=== PATIENT | male | born 1995 | race Caucasian/White ===

== ENCOUNTER → 2016-11-15 | Outpatient (CLI) | payer OTHER | LOC: RAD 12:22 | PROVIDERS: ATTEND Surgery | DX: R10.9 Unspecified abdominal pain (principal); R11.2 Nausea with vomiting, unspecified | CPT/HCPCS: 78227; A9537; Q9969; J2805 ==

== ENCOUNTER 2018-12-19 04:13 | Observation (INO) | payer BC, OTHER ==
[2018-12-19] MEDS ORDERED: ONDANSETRON HCL INJ/PF 4 MG/2 ML SDV IV ONE ×2 (04:35→13:53)
[2018-12-19] MEDS ORDERED: MORPHINE SULFATE 10 MG/ML INJ IV ONE (04:36)
[2018-12-19] MEDS ORDERED: FAMOTIDINE INJ/PF 20 MG/2 ML SDV IV ONE (04:36)
[2018-12-19] MEDS ORDERED: HYDROMORPHONE HCL INJ/PF 2 MG/ML AMPULE IV ONE ×3 (04:54→08:58)
--- NOTE | 2018-12-19 04:54 | ER Document Report ---
ED GI/ - General Chief Complaint: Abdominal Pain Stated Complaint: ABD PAIN Time Seen by Provider: 12/19/18 04:28 TRAVEL OUTSIDE OF THE [place] IN LAST 30 DAYS: No - HPI Notes: 12/19/18 04:35 Patient presents to the emergency department with chief complaint of abdominal pain that started around 1 AM this morning. Patient states having "gallbladder issues" in the past and states that the gallbladder attacks have never been this bad. Patient has vomited multiple times since developing pain. He reports that the pain feels like a burning throughout his whole abdomen worse in the epigastric and right upper quadrant. Patient states the last time he ate anything was 6 PM last night. 12/19/18 04:55 - Related Data Allergies/Adverse Reactions: No Known Allergies Allergy (Unverified 08/24/15 06:42) Past Medical History - Social History Smoking Status: Unknown if Ever Smoked Family History: Reviewed & Not Pertinent - Immunizations Hx Diphtheria, Pertussis, Tetanus Vaccination: Yes Review of Systems - Review of Systems Constitutional: See HPI EENT: No symptoms reported Cardiovascular: No symptoms reported Respiratory: No symptoms reported Gastrointestinal: See HPI Genitourinary: No symptoms reported Male Genitourinary: No symptoms reported Musculoskeletal: No symptoms reported Skin: No symptoms reported Hematologic/Lymphatic: No symptoms reported Neurological/Psychological: No symptoms reported Physical Exam - Vital signs Vitals: Temp Pulse Resp BP Pulse Ox 97.9 F 93 16 147/98 H 98 12/19/18 04:20 12/19/18 04:20 12/19/18 04:20 12/19/18 04:20 12/19/18 04:20 Interpretation: Hypertensive - Notes Notes: GENERAL: Ill-appearing, obvious distress. Patient writhing in pain. Unable to find position of comfort. HEAD: Atraumatic, normocephalic. EYES: Pupils equal round and reactive to light, extraocular movements intact, sclera anicteric, conjunctiva are normal. ENT: TMs normal, nares patent, oropharynx clear without exudates. Moist mucous membranes. NECK: Normal range of motion, supple without lymphadenopathy or JVD. LUNGS: Breath sounds clear to auscultation bilaterally and equal. No wheezes rales or rhonchi. HEART: Regular rate and rhythm without murmurs, rubs or gallops. ABDOMEN: Soft, tender in the LUQ, epigastrum, RUQ and RLQ, normoactive bowel sounds. + guarding, no rebound. No masses appreciated. EXTREMITIES: Normal range of motion, no pitting or edema. No clubbing or cyanosis. NEUROLOGICAL: Cranial nerves II through XII grossly intact. Normal speech, normal gait. SKIN: Warm, Dry, normal turgor, no rashes or lesions noted. Course - Re-evaluation Re-evalutation: 12/19/18 04:35 Upon initial assessment patient on stretcher writhing in pain. Unable to find a position of comfort and unable to sit still. A brief abdominal assessment was performed to find tenderness in the left upper quadrant, epigastric area, right upper quadrant and right lower quadrant. Will order pain medication. Once patient more comfortable will perform a thorough abdominal assessment. 12/19/18 05:00 Patient received a dose of morphine but patient reports that the medication is not helping. IV Dilaudid ordered at this time. Will continue to closely monitor. 12/19/18 05:24 Patient reports that the Dilaudid only helped him for 10 minutes, patient continues to arrive in pain and yell. We will give another dose of Dilaudid and obtain ultrasound. 12/19/18 0635 Results of ultrasound pending at this time. Went to reevaluate patient, patient resting comfortably on stretcher. Talon Roach PA-C in room for physical assessment as well. Abdomen soft, active bowel sounds in all 4 quadrants, patient is tender in the right lower quadrant as well as the right upper quadrant and epigastric area. Patient states that the majority of his pain is in the epigastric area and feels like a burning. Patient complains of itching primarily around his nose. No hives or rash noted, will administer a small dose of Benadryl. 12/19/18 07:03 Patient's ultrasound showed gallbladder sludge, there is no pericholecystic fluid and no acute findings. Due to patient's continued pain and abdominal exam which revealed significant discomfort in the RLQ and RUQ, I believe further work-up is needed and a CT has been ordered. 12/19/18 07:[address] Bear regarding patient's CT results. Radiologist saw a gallstone in the gallbladder neck, cholelithiasis/bladder sludge, a mildly tensile gallbladder. Pt. does have a white count of 16.1 as well as intractable pain requiring multiple doses of pain medication. Dr. Bear to admit and evaluate patient in the emergency department. Discussed results of CT and surgery with patient patient to remain n.p.o. Patient reports that at this time his pain level is a 2.5 out of 5. Will initiate IV maintenance fluids as well as a dose of IV Zosyn 4.5 g. 12/19/18 08:00 - Vital Signs Vital signs: Temp Pulse Resp BP Pulse Ox 97.9 F 93 26 H 147/98 H 95 12/19/18 04:20 12/19/18 04:20 12/19/18 05:19 12/19/18 04:20 12/19/18 05:19 - Laboratory Result Diagrams: 12/19/18 04:33 12/19/18 04:33 Laboratory results interpreted by me: 12/19/18 12/19/18 12/19/18 04:33 04:33 06:57 WBC 16.1 H Absolute Neutrophils 11.5 H Glucose 125 H Calcium 10.4 H Urine Protein 30 H Urine Ketones TRACE H Urine Bilirubin SMALL H Urine Urobilinogen 2.0 H Discharge - Discharge Clinical Impression: Cholelithiasis Qualifiers: Cholelithiasis location: gallbladder Cholecystitis presence: with cholecystitis Cholecystitis acuity: acute Biliary obstruction: without biliary obstruction Qualified Code(s): K80.00 - Calculus of gallbladder with acute cholecystitis wit hout obstruction Vomiting Qualifiers: Vomiting type: unspecified Vomiting Intractability: non-intractable Nausea presence: with nausea Qualified Code(s): R11.2 - Nausea with vomiting, unspecified Abdominal pain Qualifiers: Abdominal location: right upper quadrant Qualified Code(s): R10.11 - Right upper quadrant pain Condition: Stable Disposition: ADMITTED OBSERVATION Admitting Provider: Dr. Bear Unit Admitted: Surgical Floor
[2018-12-19 04:57] LABS: ABSOLUTE BASOPHILS # (AUTO) 0.1 10^3/uL (0.0-0.2); ABSOLUTE EOSINOPHILS # (AUTO) 0.4 10^3/uL (0.0-0.6); ABSOLUTE LYMPHOCYTES (AUTO) 3.3 10^3/uL (0.5-4.7); ABSOLUTE MONOCYTES (AUTO) 0.8 10^3/uL (0.1-1.4); ABSOLUTE NEUT (AUTO) 11.5 10^3/uL (1.7-8.2); BASOPHILS % (AUTO) 0.4 % (0-2); EOSINOPHILS % (AUTO) 2.3 % (0-6); HEMATOCRIT 46.1 % (37.9-51.0); HEMOGLOBIN 15.9 g/dL (13.5-17.0); LYMPHOCYTES % (AUTO) 20.8 % (13-45); MEAN CORPUSCULAR HEMOGLOBIN 29.1 pg (27.0-33.4); MEAN CORPUSCULAR HGB CONC 34.4 g/dL (32.0-36.0); MEAN CORPUSCULAR VOLUME 85 fl (80-97); MONOCYTES % (AUTO) 5.1 % (3-13); PLATELET COUNT 255 10^3/uL (150-450); RED BLOOD COUNT 5.45 10^6/uL (4.35-5.55); RED CELL DISTRIBUTION WIDTH 13.4 % (11.5-14.0); SEGMENTED NEUTROPHILS % (AUTO) 71.4 % (42-78); TOTAL CELLS COUNTED % (AUTO) 100 %; WHITE BLOOD COUNT 16.1 10^3/uL (4.0-10.5)
[2018-12-19 05:15] LABS: ALANINE AMINOTRANSFERASE 68 U/L (21-72); ALBUMIN 4.7 g/dL (3.5-5.0); ALKALINE PHOSPHATASE 64 U/L (38-126); ANION GAP 12 (5-19); ASPARTATE AMINO TRANSFERASE 26 U/L (17-59); BILIRUBIN,DIRECT 0.3 mg/dL (0.0-0.4); BILIRUBIN,TOTAL 0.5 mg/dL (0.2-1.3); BLOOD UREA NITROGEN 13 mg/dL (7-20); CALCIUM 10.4 mg/dL (8.4-10.2); CARBON DIOXIDE 26 mmol/L (22-30); CHLORIDE 104 mmol/L (98-107); GLUCOSE 125 mg/dL (75-110); LIPASE 65.2 U/L (23-300); SODIUM 142.4 mmol/L (137-145); TOTAL PROTEIN 7.3 g/dL (6.3-8.2)
[2018-12-19] MEDS ORDERED: DIPHENHYDRAMINE HCL 50 MG/ML VIAL IV ONE (06:50)
[2018-12-19] MEDS ORDERED: NORMAL SALINE 1000 ML 1,000 ML IV ONE ×2 (06:56→07:51)
--- NOTE | 2018-12-19 06:58 | RADIOLOGY REPORT (SQ) ---
EXAM DESCRIPTION: US ABDOMEN LIMITED COMPLETED DATE/TME: 12/19/2018 04:45 CLINICAL HISTORY: 23 years Male, EPIGASTRIC/RUQ PAIN Comparison: August 13, 2016. Nuclear medicine, November 15, 2016. LIMITATIONS: None. FINDINGS: Gallbladder sludge, 4 mm gallbladder wall thickness, negative sonographic Grimes's test, no pericholecystic fluid, mild hepatic steatosis, a 0.3-cm diameter common bile duct, no intrahepatic ductal dilation, 11-cm right kidney, obscured pancreas, visualized vasculature/abdominal aorta, and no significant ascites appear otherwise unremarkable. IMPRESSION: 1. No acute findings. 2. Gallbladder sludge. 4 mm gallbladder wall thickness, nonspecific. 3. Hepatic steatosis. 4. Obscured pancreas.
[2018-12-19 07:10] LABS: APPEARANCE,URINE SLIGHTLY-CLOUDY; BILIRUBIN,URINE SMALL (NEGATIVE); CALCIUM OXALATE CRYSTALS,URINE FEW /HPF; COLOR,URINE DARK YELLOW; GLUCOSE, URINE NEGATIVE (NEGATIVE); KETONES,URINE TRACE mg/dL (NEGATIVE); LEUKOCYTE ESTERASE,URINE NEGATIVE (NEGATIVE); NITRITE,URINE NEGATIVE (NEGATIVE); PROTEIN,URINE 30 mg/dL (NEGATIVE); URINE SPECIFIC GRAVITY 1.033
--- NOTE | 2018-12-19 07:39 | RADIOLOGY REPORT (SQ) ---
EXAM DESCRIPTION: CT ABDOMEN PELVIS WITH IV CONTRAST COMPLETED DATE/TME: 12/19/2018 07:02 CLINICAL HISTORY: 23 years Male, RLQ/RUQ QUAD PAIN Comparison: Ultrasound, concurrent. Technique: IV contrast. Coronal and sagittal reformat. This exam was performed according to our departmental dose-optimization program, which includes automated exposure control, adjustment of the mA and/or kV according to patient size and/or use of iterative reconstruction technique. [facility]: Dose Right [facility]: CareDose [facility]: Dose Right [facility]: Teradose 4D [facility]: BitAccess LIMITATIONS: None Findings: Cholelithiasis/gallbladder sludge. Mildly tensile gallbladder. Gallstone at the gallbladder neck. Grade one L5 anterolisthesis, mild posterior L5 vertebral height loss, indeterminate age. Chronic bilateral L5 spondylolyses. No ascites. Inferior thorax, liver, pancreas, spleen, adrenals, renal system, gastrointestinal tract, pelvic organs, lymphatics, vasculature, and musculoskeleton appear otherwise unremarkable. IMPRESSION: 1. Cholelithiasis/gallbladder sludge. Gallstone at the gallbladder neck which increases risk for biliary colic. Mildly tensile gallbladder. Differential diagnosis includes cholecystitis. 2. Grade one L5 anterolisthesis, mild posterior L5 vertebral height loss, indeterminate age. Chronic bilateral L5 spondylolyses.
[2018-12-19] MEDS ORDERED: PIPERACILLIN/TAZOBACTAM 4.5 GM VIAL IV ONE ×2 (07:52→21:11)
[2018-12-19] MEDS ORDERED: ONDANSETRON HCL INJ/PF 4 MG/2 ML SDV ONE (10:18)
[2018-12-19] MEDS ORDERED: METOCLOPRAMIDE HCL INJ/PF 10 MG/2 ML SDV ONE (10:18)
[2018-12-19] MEDS ORDERED: ROCURONIUM BROMIDE INJ 50 MG/5 ML VIAL IV ONE (10:18)
[2018-12-19] MEDS ORDERED: SUCCINYLCHOLINE CHLORIDE INJ 200 MG/10 ML VIAL ONE (10:18)
[2018-12-19] MEDS ORDERED: LIDOCAINE 2% INJ-PF (20 MG/ML) 2 ML AMPUL ONE (10:18)
[2018-12-19] MEDS ORDERED: HYDROMORPHONE HCL INJ/PF 2 MG/ML AMPULE IV PRN (11:26)
[2018-12-19] MEDS ORDERED: ACETAMINOPHEN 0 MG/0 ML RTUPB IV ONE (15:43)
[2018-12-19] MEDS ORDERED: PIPERACILLIN SODIUM/TAZOBACTAM 3.375 GM in NORMAL SALINE 100 ML IV ONE (16:00)
[2018-12-19] MEDS ORDERED: MIDAZOLAM 2 MG/2 ML INJ ONE (16:02)
[2018-12-19] MEDS ORDERED: FENTANYL CITRATE INJ/PF 100 MCG/2 ML AMPUL ONE (16:02)
[2018-12-19] MEDS ORDERED: PROPOFOL INJ 200 MG/20 ML VIAL IV ONE (16:03)
[2018-12-19] MEDS ORDERED: ACETAMINOPHEN 1,000 MG/100 ML RTUPB IV ONE (16:03)
[2018-12-19] MEDS ORDERED: HYDROMORPHONE HCL INJ/PF 2 MG/ML AMPULE ONE ×3 (16:03→19:36)
[2018-12-19] MEDS ORDERED: BUPIVACAINE HCL 0.5%-EPI 1:200000 INJ/PF 30 ML VIAL ONE (16:11)
[2018-12-19] MEDS ORDERED: FENTANYL CITRATE INJ/PF 100 MCG/2 ML AMPUL IV PRN ×3 (18:43)
[2018-12-19] MEDS ORDERED: PROMETHAZINE HCL INJ 25 MG/1 ML VIAL IV PRN (18:43)
[2018-12-19] MEDS ORDERED: MEPERIDINE HCL/PF INJ 25 MG/1 ML DISP.SYRIN IV PRN (18:43)
[2018-12-19] MEDS ORDERED: DIPHENHYDRAMINE HCL 50 MG/ML VIAL IV PRN (18:43)
[2018-12-19] MEDS ORDERED: MORPHINE SULFATE 10 MG/ML INJ IV PRN (18:43)
[2018-12-19] MEDS ORDERED: SUGAMMADEX SODIUM 200 MG/2 ML SDV IV ONE (18:50)
[2018-12-19] MEDS ORDERED: PIPERACILLIN/TAZOBACTAM 4.5 GM VIAL IV PRN (20:39)
[2018-12-19] MEDS ORDERED: ONDANSETRON HCL INJ/PF 4 MG/2 ML SDV IV PRN (20:40)
[2018-12-19] MEDS: MORPHINE SULFATE 10 MG/ML INJ IV PRN (21:06)
[2018-12-19] MEDS: NORMAL SALINE 1000 ML 1,000 ML IV PRN (21:13)
[2018-12-19] MEDS: PIPERACILLIN SODIUM/TAZOBACTAM 4.5 GM in NORMAL SALINE 100 ML IV SCH (21:14)
--- NOTE | 2018-12-19 21:20 | OPERATIVE REPORT E ---
Operative Report NAME: NATI NICOLAS : 1995 AGE: 23Y DATE OF SURGERY: 12/19/2018 ROOM: ED07 PREOPERATIVE DIAGNOSES: 1. ACUTE CHOLECYSTITIS. 2. CHOLELITHIASIS. POSTOPERATIVE DIAGNOSES: 1. ACUTE CHOLECYSTITIS. 2. CHOLELITHIASIS. PROCEDURE: Laparoscopic cholecystectomy. SURGEON: NAVA SKELTON M.D. ANESTHESIA: General. INDICATION: This is a 23-year-old male complaining of abdominal pains around 9 this morning, associated nausea and vomiting. He went to the ED where an ultrasound of the abdomen revealed gallstone. He is markedly tender in the right upper quadrant with elevated white count. DESCRIPTION OF PROCEDURE: After adequate general anesthesia the patient was placed in the supine position and the abdomen prepped and draped in the usual sterile fashion. Appropriate timeout was then called. Next, infraumbilical incision was made, fascia divided, and Shell trocar inserted through the fascia to the abdominal cavity, and CO2 insufflated to a pressure of 15 mmHg. Three other trocars were placed under direction vision at 12 mm in the subxiphoid and two 5 mm in the right upper quadrant. The gallbladder was then noted to be markedly distended and inflamed. It was then punctured with a long needle and bile aspirated. We were now able to grasp the tip of the gallbladder and plant puller the liver. The infundibulum was then grasped also and the cystic duct dissected. There was a lot of fatty tissue around the cystic duct. This was dissected with the use of [place] dissector and with Harmonic pedro. The cystic duct was then identified as well as the cystic artery. The cystic duct noted to be relatively small, it was then clipped with hemoclips, divided between the distal 2 clips. The cystic artery was then clipped with hemoclips and divided within the 2 clips with Harmonic pedro. The gallbladder was then taken off the liver bed with the use of Harmonic pedro. The gallbladder noted to be markedly edematous. However, the mid part of the gallbladder appears to be markedly adhered to the liver and the gallbladder was then partially removed by peeling it off on pulling the gallbladder cephalad. Next, prior to removal of the gallbladder from the liver bed, the liver bed was then irrigated and hemostasis obtained with cautery. The gallbladder was then completely removed from the liver bed and placed in an Endobag and pulled out through the umbilical port. There appears to be at least 1 large stone about 1.5 cm in diameter. Following this the Shell trocar was then reinserted and the liver bed again inspected. There appears to be no active bleeding but minimal oozing. Surgicel was placed over the cystic duct area stump to aid in hemostasis. A Austyn-Loza drain was then pulled out through the lateral right upper quadrant port after placing it through the subxiphoid port. It was then laid over the liver bed and anchored to the skin with 2-0 Nylon. Next, all the trocars were removed and CO2 allowed to come out through the trocar sites. The infraumbilical fascial defect was then closed with 2 [id number]-uc-[id number] sutures using 0-Vicryl. The stay suture that was placed earlier was then tied together to have a better closure. Next, the fascia of this area was then injected with Marcaine. All the subcu incision also injected with Marcaine. Next, all the skin incisions were then closed with running subcuticular 4-0 Vicryl and tied. Steri-Strips were placed over the operative sites. Needle, instrument, and sponge counts were all corrected. Estimated blood loss about 30 mL. The patient brought to the recovery room, extubated, in satisfactory condition. DICTATING PHYSICIAN: NAVA SKELTON M.D. [id number] PHY#: [id number] ID: [id number] JOB#: [id number] ACCT: [id number] cc:NAVA SKELTON M.D. >
[2018-12-19] MEDS: OXYCODONE-ACETAMINOPHEN 5-325 MG TABLET PO PRN (22:48)
[2018-12-20] MEDS: MORPHINE SULFATE 10 MG/ML INJ IV PRN ×3 (01:05→09:36)
[2018-12-20] MEDS: PIPERACILLIN SODIUM/TAZOBACTAM 4.5 GM in NORMAL SALINE 100 ML IV SCH ×3 (02:41→14:42)
[2018-12-20] MEDS: NORMAL SALINE 1000 ML 1,000 ML IV PRN (05:20)
[2018-12-20] MEDS: OXYCODONE-ACETAMINOPHEN 5-325 MG TABLET PO PRN ×2 (06:50→12:54)
[2018-12-20 16:48] VITALS: BP 147/98
--- NOTE | 2018-12-21 00:05 | DISCHARGE SUMMARY E ---
Discharge Summary NAME: NATI NICOLAS : 1995 AGE: 23Y ADMITTED: 12/19/2018 DISCHARGED: 12/20/2018 FINAL DIAGNOSES: 1. Acute cholecystitis. 2. Cholelithiasis. PROCEDURE DONE: On 12/19/2018 laparoscopic cholecystectomy. 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 He required several doses of narcotics in the ED and elevated white count. He was then brought to the OR on the same day and laparoscopic cholecystectomy was performed for an acute cholecystitis and cholelithiasis. Postoperatively the patient did very well and discharged improved, tolerating regular diet on 12/20/2018 with the above final diagnoses. DISCHARGE INSTRUCTIONS: The patient was given a prescription for Percocet 5/325 mg 1 every 6 hours as needed for about 10 doses. The patient to be followed up in the surgical clinic in 2 weeks. The patient advised not to do heavy lifting for the next 2 weeks, no more than 15 pounds. DICTATING PHYSICIAN: NAVA SKELTON M.D. [id number] PHY#: [id number] ID: [id number] JOB#: [id number] ACCT: [id number] cc:NAVA SKELTON M.D. >
--- NOTE | 2018-12-21 09:44 | HISTORY AND PHYSICAL E ---
History and Physical NAME: NATI NICOLAS : 1995 AGE: 23Y ADMITTED: 12/19/2018 ROOM: 424 CHIEF COMPLAINT: Abdominal pain. HISTORY OF PRESENT ILLNESS: This is a 23-year-old male who noted right upper quadrant pains at 1:00 this morning, after he had a fatty meal. This was associated with nausea and vomiting and severe pain that brought him to the ED. He had an ultrasound of the gallbladder, which showed gallbladder sludge, and a CT scan of the abdomen, which showed gallstone near the cystic duct. His white count is elevated but only his liver enzymes are normal. Denies any fever or chills. Admits to having nausea, vomiting. No diarrhea or constipation. He has a history of fatty food intolerance for the past couple of years. PAST MEDICAL HISTORY: Unremarkable. PAST SURGICAL HISTORY: Negative. REVIEW OF SYSTEMS: As in HPI. Denies any cough, fever, chills, chest pains, diarrhea, constipation. Admits to having right upper quadrant pain, nausea and vomiting. SOCIAL HISTORY: He stopped smoking but vapes. Occasional alcohol use. Denies recreational drug use. FAMILY HISTORY: Noncontributory. PHYSICAL EXAMINATION: GENERAL: A 23-year-old male, quite obese, in severe pain. NECK: Supple. No thyromegaly. HEENT: Nonicteric sclerae. LUNGS: Clear. HEART: Regular sinus rhythm. ABDOMEN: Soft with marked tenderness in the right upper quadrant. EXTREMITIES: No edema. IMPRESSION: 1. Cholelithiasis. 2. Acute cholecystitis. PLAN: 1. Patient started on IV antibiotics. 2. Possible laparoscopic cholecystectomy today. DICTATING PHYSICIAN: NAVA SKELTON M.D. [id number] PHY#: [id number] ID: [id number] JOB#: [id number] ACCT: [id number] cc:NAVA SKELTON M.D. >
== END 2018-12-20 16:50 | disposition home or self-care (01) ==
LOC: ER 04:13 → EH 08:31 → 4S 20:50
PROVIDERS: ADMIT Surgery; ATTEND Surgery
PROC: 0FT44ZZ Resection of Gallbladder, Percutaneous Endoscopic Approach (ICD-10-PCS; principal; 2018-12-19 16:30)
DX: K80.10 Calculus of gallbladder with chronic cholecystitis without obstruction (principal); D13.5 Benign neoplasm of extrahepatic bile ducts; E66.9 Obesity, unspecified; K76.0 Fatty (change of) liver, not elsewhere classified; L29.8 Other pruritus
CPT/HCPCS: 96376; 99285; 96361; 96375; 96365; 96366; 36415; 83690; 85025; 80053; 81001; 88304 ×2; 76705; 74177; 47562; G0378 ×2; J2250; J3490 ×4; J1200; J3010; J2765; J2270 ×2; J1170; J0330; J2405; J7030 ×2; J2704; S0028; J2543 ×3; J0131; 790